=== PATIENT | male | born 1955 | race Caucasian/White ===

== ENCOUNTER 2020-11-23 14:37 | Emergency (ER) | payer MEDICARE, OTHER ==
[2020-11-23] MEDS ORDERED: Propofol 200 MG/20 ML SDV IV ONE (14:38)
[2020-11-23] MEDS ORDERED: Acetaminophen/HYDROcodone 325-10 MG Tab PO ONE (14:38)
[2020-11-23 15:53] VITALS: BP 168/96; PULSE 63
--- NOTE | 2020-11-23 15:57 | CR ---
EXAMINATION: Wrist Comp Min 3V Rt SEX: Male AGE: 65 years CLINICAL HISTORY: 65-year-old male painful right wrist (fall on wrist). Interpretation: Abnormal. Badly comminuted (shattered) FRACTURES distal right radius and ulna. Anatomic alignment in the AP projection but evidence of impaction with dorsal angulation on lateral projection. Surrounding soft tissue swelling. No subcutaneous air No fracture or disruption of the carpal or metacarpal bones right wrist. No foreign bodies. INTERPRETATION: 1. CONCLUSION:
[2020-11-23] MEDS ORDERED: Lidocaine 2% with EPINEPHrine 1:200,000 20 ML SDV INJECT ONE (16:25)
[2020-11-23] MEDS ORDERED: Lidocaine 1% with EPINEPHrine 1:100,000 20 ML MDV INJECT ONE (16:31)
[2020-11-23] MEDS ORDERED: HYDROmorphone 1 MG/ML Syringe IVPUSH ONE ×2 (16:36→17:43)
[2020-11-23] MEDS ORDERED: Ondansetron 4 MG/2 ML SDV ONE (16:58)
[2020-11-23] MEDS ORDERED: Ondansetron 4 MG/2 ML SDV IVPUSH ONE ×2 (16:59→18:13)
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
--- NOTE | 2020-11-23 19:22 | CR ---
PROCEDURE INFORMATION: Exam: XR Right Wrist Exam date and time: 11/23/2020 7:06 PM Age: 65 years old Clinical indication: Pain; Wrist; Right; Additional info: Post reduction TECHNIQUE: Imaging protocol: XR Right wrist. Views: 1 or 2 views. COMPARISON: CR Wrist Comp Min 3V Rt 11/23/2020 3:32 PM FINDINGS: Bones/joints: The alignment of the fracture fragments of the right distal radius is now near anatomic. The ulnar styloid now resides in anatomic position. The alignment of the joints is anatomic and the joint spaces are maintained. Soft tissues: Overlying cast material obscures soft tissue and fine bone detail. IMPRESSION: Near anatomic alignment of the fracture fragments in cast.
[2020-11-23] MEDS ORDERED: Acetaminophen/HYDROcodone 325-10 MG Tab ONE (19:37)
== END 2020-11-23 19:40 | disposition home or self-care (01) ==
LOC: DL.ED 14:37
DX: S52.501A Unspecified fracture of the lower end of right radius, initial encounter for closed fracture (principal); S52.601A Unspecified fracture of lower end of right ulna, initial encounter for closed fracture; E66.9 Obesity, unspecified; Z68.32 Body mass index [BMI] 32.0-32.9, adult; W00.0XXA Fall on same level due to ice and snow, initial encounter
CPT/HCPCS: 01820; 12011; 25605; 73100-RT; 73110-RT; 96374; 96375; 96376; 99152; 99283-25; 99284; A9270-GY; J1170; J2405; J2704

== ENCOUNTER 2021-03-22 05:45 | Day surgery (SDC) | payer MEDICARE, OTHER ==
[~2021-03-22 05:45] MED LIST: Midazolam 1 MG/ML 2 ML SDV ONE; fentaNYL 100 MCG/2 ML SDV ONE
[2021-03-22] MEDS ORDERED: fentaNYL 100 MCG/2 ML SDV IV ONE ×4 (05:46→07:13)
[2021-03-22] MEDS ORDERED: Midazolam 1 MG/ML 2 ML SDV IV ONE ×7 (05:46→07:12)
[2021-03-22] MEDS ORDERED: Sodium Chloride 0.9% 10 ML Syringe FLUSH PRN (06:00)
[2021-03-22] MEDS ORDERED: Dextrose 5%-0.45% NaCl 1,000 ML IV SCH (06:00)
--- NOTE | 2021-03-22 08:45 | OR ---
DATE: 03/22/2021 PROCEDURE: Total colonoscopy. INSTRUMENT USED: [id number] Olympus video colonoscope. PREMEDICATIONS: Fentanyl 125 mcg intravenous, Versed 4 mg intravenous. Nasal O2 cannula. The procedure was done under pulse oximetry, BP recording, and desk monitor. INDICATIONS: Screening colonoscopic examination is done for detection of any polypoid lesions and removal, endoscopic hemostasis therapy if needed. DESCRIPTION OF PROCEDURE: Initial rectal exam showed BPH. Rigid anoscopy showed small internal hemorrhoids without bleeding from them. The colonoscope was passed with ease up to the ileocecal area. Photographs were taken of the normal-appearing cecum, identified by landmarks of appendiceal orifice and double-bulged ileocecal folds. No bleeding was noted from any of the visualized areas at the commencement of the examination. There was some limitation of the study in some areas due to the presence of large air bubbles. The bowel preparation, [place] Score 2 in all areas, total number 6. No stricture. No vascular ectasia. No large isolated ulcerations seen. No evidence of diffuse inflammatory bowel disease in the form of friability, contact bleeding, or ulcerations. No polyp or tumor mass identified. Probing the proximal sides of folds and flexures using adequate distention and clearing up the stool material, withdrawal of the scope was made, cecum to rectum time over 6 minutes. No bleeding was noted from any of the visualized areas at the completion of examination. IMPRESSION: Internal hemorrhoids. The patient tolerated the procedure well. [facility] /[id number]
[2021-03-22 10:15] VITALS: BP 132/82; PULSE 64
== END 2021-03-22 09:26 | disposition home or self-care (01) ==
LOC: DL.ENDO 05:45
PROVIDERS: ATTEND Internal Medicine Gastroenterology
DX: Z12.11 Encounter for screening for malignant neoplasm of colon (principal); K64.8 Other hemorrhoids; E66.09 Other obesity due to excess calories; I10 Essential (primary) hypertension; E78.00 Pure hypercholesterolemia, unspecified; Z98.890 Other specified postprocedural states; Z90.49 Acquired absence of other specified parts of digestive tract; Z68.31 Body mass index [BMI] 31.0-31.9, adult
CPT/HCPCS: J2250; J3010; J7042